=== PATIENT | male | born 1945 | race Caucasian/White ===

== ENCOUNTER 2016-07-01 12:48 | Day surgery (SDC) | payer OTHER, MEDICARE ==
[2016-07-01] MEDS ORDERED: LIDOCAINE 1% 5 ML SDV ONE (13:36)
[2016-07-01 13:56] LABS: % IMMATURE GRANULYOCYTES 0.4 % (0.0-1.1); ABSOLUTE IMMATURE GRANULOCYTES 0.03 10^3/uL (0.00-0.10); ADD DIFF? NO; ADD MORPH? NO; ADD SCAN? NO; ATYPICAL LYMPHOCYTE FLAG 20 (0-99); FRAGMENT RBC FLAG 0 (0-99); HEMATOCRIT 40.4 % (40.0-51.0); HEMOGLOBIN 13.4 g/dL (13.7-17.5); LEFT SHIFT FLG 0 (0-99); LIPEMIA HEMOLYSIS FLAG 80 (0-99); MEAN CELL HEMOGLOBIN 32.8 pg (27.9-34.1); MEAN CELL HEMOGLOBIN CONCENTR. 33.2 g/dL (32.4-36.7); MEAN PLATELET VOLUME 10.6 fL (8.7-11.7); PLATELET CLUMPS FLAG 10 (0-99); PLATELET COUNT 173 10^3/uL (150-400); RED BLOOD CELL COUNT 4.08 10^6/uL (4.40-6.38); RED CELL DISTRIBUTION WIDTH 13.9 % (11.5-15.2)
[2016-07-01] MEDS ORDERED: LIDOCAINE 1% 5 ML SDV ID PRN (13:56)
[2016-07-01] MEDS ORDERED: LR 1,000 ML IV ONE (13:56)
[2016-07-01 14:07] LABS: INR 1.32 (0.83-1.16); PROTIME(PATIENT) 16.4 SEC (12.0-15.0)
[2016-07-01 14:11] LABS: ANION GAP 11 mEq/L (8-16); CALCIUM 9.3 mg/dL (8.5-10.4); CARBON DIOXIDE 25 mEq/l (22-31); CHLORIDE 109 mEq/L (97-110); CREATININE 4.3 mg/dL (0.7-1.3); GLOMERULAR FILTRATION RATE 14; GLUCOSE 122 mg/dL (70-100); POTASSIUM 5.6 mEq/L (3.5-5.2); SODIUM 145 mEq/L (134-144)
[2016-07-01] MEDS ORDERED: fentaNYL 100 MCG/2 ML INJ ONE (14:24)
--- NOTE | 2016-07-01 15:22 | GPN ---
[f rep st] PROCEDURE NOTE DATE OF PROCEDURE: 07/01/2016 PROCEDURE: Esophagogastroduodenoscopy with biopsy. 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 CONSENT: Risks, benefits, and alternatives of the procedure were discussed great detail with the patient. Risks of infection, bleeding, perforation, and sedation were discussed. All questions were answered. Informed consent was obtained. MEDICATIONS: Propofol. Please see Anesthesiology record for details. ESTIMATED BLOOD LOSS: Insignificant. ESOPHAGOGASTRODUODENOSCOPY EXAMINATION: The Olympus upper endoscope was introduced into the mouth and advanced to the esophagus. The proximal and mid esophagus were normal in appearance. The patient was noted to have a slightly irregular Z line. Biopsies were taken. The stomach was entered and closely examined, including retroflexed views of the angularis, cardia, and fundus. The patient was noted to have a hiatal hernia. The mucosa in the antrum and body was erythematous in a patchy distribution and biopsies were taken. The duodenal bulb and second portion of the duodenum were normal in appearance. IMPRESSION: 1. Irregular Z line, status post biopsy. 2. Gastritis, status post biopsy. 3. Hiatal hernia. RECOMMENDATIONS: 1. Follow up on biopsy results. 2. Repeat examination depending upon pathology. 3. Anti-reflux measures. 4. PPI therapy. /[id number]/MODL MTDD
== END 2016-07-01 16:25 | disposition home or self-care (01) ==
LOC: FSGY 12:48
PROVIDERS: ATTEND Internal Medicine Gastroenterology
PROC: 0DB58ZX Excision of Esophagus, Via Natural or Artificial Opening Endoscopic, Diagnostic (ICD-10-PCS; principal; 2016-07-01 14:15)
PROC: 0DB68ZX Excision of Stomach, Via Natural or Artificial Opening Endoscopic, Diagnostic (ICD-10-PCS; principal; 2016-07-01 14:15)
DX: K29.70 Gastritis, unspecified, without bleeding (principal); K44.9 Diaphragmatic hernia without obstruction or gangrene; K21.9 Gastro-esophageal reflux disease without esophagitis; I10 Essential (primary) hypertension; E11.9 Type 2 diabetes mellitus without complications; G47.33 Obstructive sleep apnea (adult) (pediatric); E78.5 Hyperlipidemia, unspecified
CPT/HCPCS: J3010

== ENCOUNTER 2016-07-30 12:10 | Observation (INO) | payer OTHER, MEDICARE ==
[~2016-07-30 12:10] MED LIST: ceFAZolin 2 GM/DEXTROSE 100 ML IV ONE
[2016-07-30] MEDS ORDERED: NS 500 ML IV ONE (12:54)
[2016-07-30] MEDS ORDERED: LIDOCAINE 1% 5 ML SDV ID PRN (12:54)
[2016-07-30] MEDS ORDERED: CEFAZOLIN 2 GM/DEXTROSE/100 ML BAG IV ONE (12:59)
[2016-07-30] MEDS ORDERED: NS BOLUS 500 ML (Wide open) IV ONE (13:00)
[2016-07-30] MEDS ORDERED: INSULIN LISPRO 100 UNIT/ML SC ONE ×2 (13:00→14:30)
[2016-07-30] MEDS ORDERED: INSULIN REGULAR HUMAN 100 UNIT/ML ONE (13:05)
[2016-07-30 13:37] LABS: INR 2.36 (0.83-1.16)
[2016-07-30] MEDS ORDERED: SKIN ADHESIVE (DERMABOND) 1 EACH TP ONE (15:52)
[2016-07-30] MEDS ORDERED: THROMBIN (RECOMBINANT) 20,000 UNIT SPRAY TP ONE (15:53)
[2016-07-30] MEDS ORDERED: PROTAMINE SULFATE 50 MG/5 ML VIAL IVP ONE (15:53)
[2016-07-30] MEDS ORDERED: THROMBIN (RECOMBINANT) 5,000 UNIT VIAL TP ONE (15:53)
[2016-07-30] MEDS ORDERED: BUPIVACAINE 0.5% 30 ML SDV ONE (15:53)
[2016-07-30] MEDS ORDERED: PAPAVERINE HCL 60 MG/2 ML SDV ONE (15:54)
[2016-07-30] MEDS ORDERED: fentaNYL 100 MCG/2 ML INJ ONE (15:55)
[2016-07-30] MEDS ORDERED: ROCURONIUM 100 MG/10 ML VIAL ONE (15:57)
[2016-07-30] MEDS ORDERED: ONDANSETRON 4 MG/2 ML VIAL ONE (15:57)
[2016-07-30] MEDS ORDERED: LIDOCAINE 2% 5 ML SDV ONE (15:58)
[2016-07-30] MEDS ORDERED: MIDAZOLAM 2 MG/2 ML VIAL ONE (15:59)
[2016-07-30] MEDS ORDERED: PHENYLEPHRINE HCL 100 MCG/ML SYR ONE ×2 (16:09→18:04)
[2016-07-30] MEDS ORDERED: HEPARIN 10,000 UNIT/10 ML MDV ONE (16:26)
[2016-07-30] MEDS ORDERED: GLYCOPYRROLATE 0.2 MG/1 ML VIAL ONE (17:35)
[2016-07-30] MEDS ORDERED: NEOSTIGMINE METHYLSULFATE 5 MG/5 ML SYR ONE (17:45)
[2016-07-30] MEDS ORDERED: VASOPRESSIN 20 UNIT/ML VIAL ONE (19:45)
[2016-07-30] MEDS ORDERED: ALBUMIN 5% 250 ML IV ONE (20:00)
[2016-07-31] MEDS ORDERED: DIGOXIN 125 MCG TAB PO SCH (08:30)
[2016-07-31] MEDS ORDERED: D5W 1/2 NS 1,000 ML IV SCH (08:30)
[2016-07-31] MEDS ORDERED: BUPIVACAINE 0.5% 30 ML SDV ONE (08:36)
[2016-07-31] MEDS ORDERED: ceFAZolin 3 GM in D5W 100 ML IV ONE (09:58)
--- NOTE | 2016-07-31 10:14 | SOAPPROG ---
SOAP Progress Note Assessment/Plan: Assessment/plan: 71 Y M s/p AUBREE AVF, now with hematoma. To OR today for hematoma evacuation. Brief H&P review: PMH: CRF, CVA, afib, HTN, DIMPLE PSH: AVF, appy, mason, vasectomy, cystectomy, penile prosthesis Meds: reviewed, see Fuzmo. All: NKDA PE: alert, nad ncat ctab rrr abd soft ext: LUE c inc cdi, +hematoma swelling, +bruit. 07/31/16 10:08 Objective: Vital Signs Temp Pulse Resp BP Pulse Ox 36.8 C 118 H 15 91/56 L 95 07/31/16 07:39 07/31/16 08:52 07/31/16 07:39 07/31/16 07:39 07/31/16 07:39 07/30/16 07/31/16 08/01/16 05:59 05:59 05:59 Intake Total 1210 Output Total 25 Balance 1185 PT 26.0 SEC (12.0-15.0) H 07/30/16 12:50 INR 2.36 (0.83-1.16) H 07/30/16 12:50 ICD10 Worksheet Patient Problems: Problems Problem Status Onset CRF (chronic renal failure) Acute - ICD10 Problem Qualifiers (1) CRF (chronic renal failure) Qualifiers: Chronic kidney disease stage: C
[2016-07-31] MEDS ORDERED: MIDAZOLAM 2 MG/2 ML VIAL ONE (11:09)
[2016-07-31] MEDS ORDERED: fentaNYL 100 MCG/2 ML INJ ONE (11:09)
[2016-07-31] MEDS ORDERED: LIDOCAINE 2% 5 ML SDV ONE ×2 (11:18)
[2016-07-31] MEDS ORDERED: THROMBIN (RECOMBINANT) 5,000 UNIT VIAL TP ONE (11:38)
[2016-07-31] MEDS ORDERED: SKIN ADHESIVE (DERMABOND) 1 EACH TP ONE (11:43)
--- NOTE | 2016-07-31 12:01 | POSTOPPROG ---
Post Op Note Date of Operation: 07/31/16 Surgeon: Gregor Morales Nut Cracker: Jill Ziegler PA-C; Sukhdeep Rodríguez MS. Anesthesiologist: Cuauhtemoc Anesthesia: Other (Specify) (MAC) Pre-op Diagnosis: CRF, s/p AVF, hematoma Post-op Diagnosis: same Procedure: evacuation of hematoma at AVF surgical site, LUE Findings: clotted blood, no active bleeding Inf/Abcess present in the surg proc area at time of surgery?: No EBL: Minimal Complications: none Specimen(s): none
[2016-07-31 13:31] VITALS: RESP 15; TEMP 98.7; O2SAT 90
[2016-07-31 16:06] VITALS: BP 91/53; PULSE 117
[2016-07-31] MEDS ORDERED: METOPROLOL TARTRATE 100 MG TAB PO ONE (16:30)
--- NOTE | 2016-08-04 09:06 | GOP ---
[f rep st] OPERATIVE REPORT DATE OF OPERATION: 07/31/2016 SURGEON: Gregor Morales MD SUPERVISOR ROUGH END: Jill Ziegler PA-C ANESTHESIOLOGIST: Jamie Posadas MD PREOPERATIVE DIAGNOSIS: 1. Chronic renal failure. 2. Wound hematoma in the arteriovenous fistula site. POSTOPERATIVE DIAGNOSIS: 1. Chronic renal failure. 2. Wound hematoma in the arteriovenous fistula site. PROCEDURE PERFORMED: Evacuation of wound hematoma, left upper extremity. FINDINGS: There was a golf ball-size hematoma, but no active bleeding was seen. DESCRIPTION OF PROCEDURE: The patient was taken to the operating room where he received satisfactor y IV sedation and monitored anesthesia care by Dr. Posadas. He was placed in the supine position w ith his left arm outstretched on an arm board, prepped, and draped in the usual sterile fashion. Th e old incision was incised. Hematoma was evacuated. The AV fistula appeared to be quite intact. T here were no signs of any bleeding from the anastomosis or the vein graft. No other significant act mayda bleeding was encountered. The wound was thoroughly irrigated. Some topical thrombin was placed in the cavity, and the wound was closed in layers using 3-0 Vicryl for the subcutaneous tissue and a 4-0 Monocryl subcuticular stitch for the skin. All layers were infiltrated with 1% Marcaine. He tolerated the procedure well. There were no complications. Blood loss from the procedure was less than 5 cc. He was taken to the recovery room in good condition. /[id number]/MODL
--- NOTE | 2016-08-04 09:41 | GOP ---
[f rep st] OPERATIVE REPORT DATE OF OPERATION: 07/30/2016 SURGEON: Gregor Morales MD UTILITY SPECIALIST: Jill Ziegler PA-C [id number]. PREOPERATIVE DIAGNOSIS: Chronic renal failure. POSTOPERATIVE DIAGNOSIS: Chronic renal failure. PROCEDURE PERFORMED: FINDINGS: Patient was found to have an adequate cephalic vein in the upper arm, and cephalic vein a t the wrist was small. DESCRIPTION OF PROCEDURE: Patient was taken to the operative room, where he received satisfactory g eneral endotracheal anesthesia. He was placed in supine position with the left arm outstretched on an arm board, prepped and draped in the usual sterile fashion. The veins of the arm were evaluated with the ultrasound, with findings of a 3.5 mm cephalic vein, adequate for AV fistula in the upper a rm. A curvilinear incision was made in the antecubital space. Dissection extended down through the biceps aponeurosis, and the brachial artery was dissected free and controlled with vessel loops. T he cephalic vein was dissected free above and below the antecubital space. The patient was systemic ally heparinized and the vein was then ligated distally, and divided and rotated over to the brachia l artery. An end-to-side anastomosis was made to the brachial artery using a running 6-0 Prolene king ture, creating an 8 mm anastomosis. Flow was first established through the AV fistula and then back down the hand, and maintained a good AV fistula flow and positive radial pulse, and capillary filli ng in the hand. Heparin was reversed with protamine. The wound was irrigated. Topical thrombin wa s placed on the surgical site. The wound was infiltrated with 0.5% Marcaine and closed in layers us ing 3-0 Vicryl for the subcutaneous tissue and a 4-0 Monocryl subcuticular stitch for the skin. He tolerated the procedure well and taken to the recovery room in good condition. PROCEDURE PERFORMED: Ultrasound vein mapping of the left arm with a left brachiocephalic AV fistula . /[id number]/MODL
== END 2016-07-31 16:21 | disposition home or self-care (01) ==
LOC: FSGY 12:10 → F3N 19:55
PROVIDERS: ADMIT Surgery; ATTEND Surgery
PROC: 0JCF0ZZ Extirpation of Matter from Left Upper Arm Subcutaneous Tissue and Fascia, Open Approach (ICD-10-PCS; 2016-07-30)
PROC: 03180ZD Bypass Left Brachial Artery to Upper Arm Vein, Open Approach (ICD-10-PCS; principal; 2016-07-30 14:30)
DX: N18.4 Chronic kidney disease, stage 4 (severe) (principal); L76.32 Postprocedural hematoma of skin and subcutaneous tissue following other procedure; I12.9 Hypertensive chronic kidney disease with stage 1 through stage 4 chronic kidney disease, or unspecified chronic kidney disease; E66.9 Obesity, unspecified; E78.5 Hyperlipidemia, unspecified; E11.9 Type 2 diabetes mellitus without complications; I48.91 Unspecified atrial fibrillation; K21.9 Gastro-esophageal reflux disease without esophagitis
CPT/HCPCS: 23930; 36825; J0690; J1644; J1815; J2250; J2370; J2405; J2710; J2720; J3010; P9041; 82947-QW; J2440